=== PATIENT | male | born 1965 | race Caucasian/White ===

== ENCOUNTER 2020-05-13 12:46 | Emergency (ER) | payer MEDICAID ==
[~2020-05-13] VITALS: Ht 177.8 cm; Wt 81.8 kg
[~2020-05-13 12:46] MED LIST: UNABLE TO OBTAIN
[2020-05-13 12:52] VITALS: BP 124/88
[2020-05-13] MEDS ORDERED: ceFAZolin 1gm IM kit IM ONE (13:25)
[2020-05-13] MEDS ORDERED: TETanus/Pertussis (Acell)/Diphther VAC/PF (Tdap-Adult) 0.5ml syringe IMVAC ONE (13:25)
[2020-05-13] MEDS ORDERED: AMOX-422 PO (13:27)
[2020-05-13] MEDS ORDERED: amox tr/potassium clavulanate 875/125mg TAB PO ONE (13:30)
== END 2020-05-13 13:54 | disposition home or self-care (01) ==
LOC: ER 12:46
DX: S62.621B Displaced fracture of middle phalanx of left index finger, initial encounter for open fracture (principal); F15.90 Other stimulant use, unspecified, uncomplicated; Z79.899 Other long term (current) drug therapy; W26.8XXA Contact with other sharp object(s), not elsewhere classified, initial encounter; Y93.89 Activity, other specified; Y92.89 Other specified places as the place of occurrence of the external cause; Y99.8 Other external cause status
CPT/HCPCS: 29130; 73140; 90471; 90715; 96372; 99284; J0690